=== PATIENT | male | born 1985 | race Caucasian/White ===

== ENCOUNTER → 2024-08-06 | Outpatient (CLI) | payer BC ==
[~2024-08-06] MED LIST: CEPHALEXIN500 M1 PO; Iohexol 300 - 100 ML VIAL IV ONE; NO HOME MEDICATIONS; NS 100 ML IV SCH
== END ==
LOC: COL.RAD 07:50
DX: R91.8 Other nonspecific abnormal finding of lung field (principal); J84.10 Pulmonary fibrosis, unspecified
CPT/HCPCS: Q9967